=== PATIENT | female | born 2000 | race Caucasian/White ===

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

== ENCOUNTER 2020-09-17 04:07 | Inpatient (IN) ==
[2020-09-17] MEDS ORDERED: CALCIUM GLUCONATE 1,000 MG in SODIUM CHLORIDE 0.9% 100 ML IV PRN (04:33)
[2020-09-17] MEDS ORDERED: MAGNESIUM SULF RIDER 4 GM/100 ML PREMIX IV ONE (04:33)
[2020-09-17] MEDS: LACTATED RINGERS 1,000 ML IV SCH ×2 (04:37→10:05)
[2020-09-17 04:39] LABS: Amorphous Crystals,Urine Few /HPF (Few); Bilirubin,Urine Negative (Negative); Blood, Urine Negative (Negative); Glucose,Urine (UA) Negative (Negative); Ketones,Urine Negative (Negative); Mucus,Urine Occasional /LPF (Occasional); Nitrite,Urine Negative (Negative); Protein,Urine Negative; RBC,Urine 3 /HPF (0-4); Squamous Epithelial Cell,Urine Occasional /HPF (0-10); Urine Appearance CLOUDY (Clear); Urine Color Yellow (Yellow); Urine Specific Gravity 1.019 (1.001-1.035); Urine Urobilinogen < 2.0 EU/DL (0.2-1.0)
[2020-09-17] MEDS: TERBUTALINE 1 MG/1 ML VIAL SUBCUT PRN ×2 (04:47→06:19)
[2020-09-17] MEDS: MAGNESIUM SULF DRIP 40 GM/1,000 ML ML IV SCH ×2 (04:52→21:26)
[2020-09-17] MEDS ORDERED: ONDANSETRON 4 MG/2 ML VIAL IM PRN (04:53)
[2020-09-17] MEDS: BUTORPHANOL 2 MG/ML VIAL IV PRN (05:14)
[2020-09-17] MEDS: ONDANSETRON 4 MG/2 ML VIAL IV PRN ×2 (05:14→13:12)
[2020-09-17 05:17] LABS: Basophils % 0.2 % (0.0-0.8); Eosinophils % 0.3 % (0.00-10.9); Hematocrit 36.1 VOL% (35.7-47.0); Hemoglobin 12.6 GM/DL (12.0-16.0); Immature Granulocytes % 0.7 %; Lymphocytes # 2.7 10*3/uL (1.4-4.0); Lymphocytes % 18.2 % (21.3-54.2); Mean Corpuscular HGB Conc 34.9 GM/DL (32-36); Mean Platelet Volume 10.5 FL (9.6-12.0); Monocytes % 5.1 % (1.7-12.7); Neutrophils % 75.5 % (38.7-73.9); Platelet Count 261 T/CUMM (130-400); Red Blood Count 4.01 MC/CUMM (3.8-5.5); Red Cell Distribution Width 12.3 % (9.3-17.3); White Blood Count 14.8 T/CUMM (4-12)
[2020-09-17 05:35] LABS: Alanine Aminotransferase 16 U/L (13-56); Alkaline Phosphatase 77 U/L (45-117); Aspartate Amino Transferase 13 U/L (0-37); Bilirubin,Total < 0.39 MG/DL (0.20-1.00); Blood Urea Nitrogen 8 MG/DL (7-18); Carbon Dioxide 22 MMOL/L (21-32); Estimated Glom Filtration Rate 129 ML/MIN; Glucose 92 MG/DL (74-106); Osmolality,Calculated 274.5 MOS/KG (273-304); Potassium 3.5 MMOL/L (3.5-5.1); Sodium 139 MMOL/L (136-145); Total Protein 6.9 G/DL (6.4-8.2)
[2020-09-17] MEDS: AMPICILLIN INJ 2,000 MG in SODIUM CHLORIDE 0.9% 100 ML IV SCH ×3 (07:36→19:16)
[2020-09-17] MEDS: BETAMETH SODIUM PHOS/ACETATE 30 MG/5 ML VIAL IM SCH (07:58)
[2020-09-17] MEDS ORDERED: ACETAMINOPHEN 500 MG TABLET PO ONE (18:51)
[2020-09-18] MEDS: AMPICILLIN INJ 2,000 MG in SODIUM CHLORIDE 0.9% 100 ML IV SCH ×4 (00:47→18:32)
[2020-09-18] MEDS: LACTATED RINGERS 1,000 ML IV SCH ×2 (00:50→15:53)
[2020-09-18] MEDS: BETAMETH SODIUM PHOS/ACETATE 30 MG/5 ML VIAL IM SCH (07:44)
[2020-09-18] MEDS: NIFEdipine 10 MG CAPSULE PO SCH ×4 (11:00→22:25)
[2020-09-18] MEDS: ACETAMINOPHEN 500 MG TABLET PO PRN (11:35)
[2020-09-19] MEDS: AMPICILLIN INJ 2,000 MG in SODIUM CHLORIDE 0.9% 100 ML IV SCH (01:05)
[2020-09-19] MEDS: NIFEdipine 10 MG CAPSULE PO SCH ×5 (02:35→17:53)
[2020-09-19] MEDS: ONDANSETRON 4 MG/2 ML VIAL IV PRN ×2 (07:27→20:00)
[2020-09-19] MEDS: ACETAMINOPHEN 500 MG TABLET PO PRN ×2 (07:31→19:11)
[2020-09-19] MEDS: LACTATED RINGERS 1,000 ML IV SCH (11:33)
[2020-09-19] MEDS ORDERED: SODIUM CHLORIDE 0.65% NASAL SPRAY 45 ML BOTTLE BOTH NARES PRN (15:31)
[2020-09-19 17:43] LABS: Basophils % 0.1 % (0.0-0.8); Hematocrit 30.4 VOL% (35.7-47.0); Immature Granulocytes % 0.7 %; Immature Granulocytes Absolute 0.12 #; Lymphocytes # 1.7 10*3/uL (1.4-4.0); Lymphocytes % 10.2 % (21.3-54.2); Mean Corpuscular HGB Conc 33.6 GM/DL (32-36); Mean Corpuscular Volume 92.4 FL (87-102); Mean Platelet Volume 9.9 FL (9.6-12.0); Platelet Count 211 T/CUMM (130-400); Red Blood Count 3.29 MC/CUMM (3.8-5.5); Red Cell Distribution Width 12.4 % (9.3-17.3); White Blood Count 16.3 T/CUMM (4-12)
[2020-09-19 17:45] LABS: Hemoglobin 10.2 GM/DL (12.0-16.0)
[2020-09-19] MEDS ORDERED: FUROSEMIDE 40 MG/4 ML VIAL IV ONE (19:28)
[2020-09-19] MEDS: BUTORPHANOL 2 MG/ML VIAL IV PRN (20:01)
[2020-09-19] MEDS: AMOXICILLIN/CLAV 500 MG TABLET PO SCH (20:45)
[2020-09-19] MEDS ORDERED: METHYLERGONOVINE 0.2 MG/1 ML AMP ONE (21:02)
[2020-09-19] MEDS ORDERED: CARBOPROST TROMETHAMINE 250 MCG/ML AMP IM ONE (21:03)
[2020-09-19] MEDS ORDERED: MEPERIDINE 50 MG/1 ML VIAL ONE (21:04)
[2020-09-19] MEDS ORDERED: LIDOCAINE 1% 50 ML VIAL ONE (21:04)
[2020-09-19] MEDS ORDERED: OXYTOCIN/LR 20 UNIT/1,000 ML BAG IV ONE ×2 (21:06→21:28)
[2020-09-19] MEDS ORDERED: oxyCODONE/ACETAMINOPHEN 5-325 MG TABLET PO PRN ×2 (21:28)
[2020-09-19] MEDS ORDERED: LANOLIN 50% CREAM 0.3 OZ TUBE TOP PRN (21:28)
[2020-09-19] MEDS ORDERED: DIPH/TET/ACEL PERT BOOSTER VACCINE 0.5 ML VIAL IM ONE (21:28)
[2020-09-19] MEDS ORDERED: ACETAMINOPHEN 325 MG TABLET PO PRN (21:28)
[2020-09-19] MEDS ORDERED: HYDROCORTISONE 2.5% RECTAL CREAM 30 GM TUBE TOP PRN (21:28)
[2020-09-19] MEDS ORDERED: MEASLES/MUMPS/RUBELLA VACCINE 0.5 ML VIAL SUBCUT ONE (21:28)
[2020-09-19] MEDS ORDERED: BISACODYL 10 MG SUPP RECTAL PRN (21:28)
[2020-09-19] MEDS ORDERED: BENZOCAINE 20%/MENTHOL 0.5% SPRAY 56 GM CAN TOP PRN (21:28)
[2020-09-19] MEDS ORDERED: RHO(D) IMMUNE GLOBULIN 300 MCG SYRINGE IM ONE (21:28)
[2020-09-19] MEDS ORDERED: WITCH HAZEL PADS 100/JAR TOP PRN (21:28)
[2020-09-19] MEDS ORDERED: ONDANSETRON 4 MG/2 ML VIAL IV PRN (21:28)
[2020-09-20] MEDS: NIFEdipine 10 MG CAPSULE PO SCH (00:48)
[2020-09-20] MEDS ORDERED: OXYTOCIN/LR 20 UNIT/1,000 ML BAG IV ONE (03:30)
[2020-09-20 06:19] LABS: Basophils % 0.1 % (0.0-0.8); Eosinophils % 0.1 % (0.00-10.9); Hematocrit 31.1 VOL% (35.7-47.0); Hemoglobin 10.5 GM/DL (12.0-16.0); Immature Granulocytes % 0.8 %; Immature Granulocytes Absolute 0.14 #; Lymphocytes # 2.6 10*3/uL (1.4-4.0); Lymphocytes % 14.6 % (21.3-54.2); Mean Corpuscular HGB Conc 33.8 GM/DL (32-36); Mean Platelet Volume 10.4 FL (9.6-12.0); Monocytes % 6.1 % (1.7-12.7); Neutrophils % 78.3 % (38.7-73.9); Platelet Count 196 T/CUMM (130-400); Red Blood Count 3.38 MC/CUMM (3.8-5.5); Red Cell Distribution Width 12.4 % (9.3-17.3); White Blood Count 18.1 T/CUMM (4-12)
[2020-09-20] MEDS: IBUPROFEN 800 MG TABLET PO PRN ×2 (08:44→20:16)
[2020-09-20] MEDS ORDERED: [UNRECOGNIZED DRUG - REMARK] PO SCH (09:00)
[2020-09-20] MEDS ORDERED: LORATADINE 10 MG TABLET PO SCH (09:00)
[2020-09-20] MEDS: AMOXICILLIN/CLAV 500 MG TABLET PO SCH (10:25)
[2020-09-20] MEDS: DOCUSATE SODIUM 100 MG CAPSULE PO SCH ×2 (10:25→20:15)
[2020-09-20] MEDS ORDERED: FLUTICASONE 50 MCG NASAL SPRAY 16 GM BOTTLE BOTH NARES SCH (21:00)
[2020-09-21 11:06] VITALS: BP 114/78
== END 2020-09-21 10:10 | disposition home or self-care (01) | DRG 807 ==
LOC: N.LDOUT 04:07 → N.LD 04:13 → N.OB 09-20 10:45
PROVIDERS: ADMIT Obstetrics & Gynecology; ATTEND Specialist